=== PATIENT | female | born 1995 | race Caucasian/White ===

== ENCOUNTER 2018-03-16 20:43 | Emergency (ER) | payer BC ==
--- NOTE | 2018-03-16 21:56 | UC ---
Complaint Female HPI - HPI Summary HPI Summary: 22 y/o female presents to the urgent care c/o bright red blood in the stool she noticed 4 days ago after a bowel movement which resolved today. Pt reports lately she she has been constipated w/ hard stool every other day. She has been taking Percocet PO for a herniated disc in her back since 03/07/2018 and she thinks this has made her bowel movement harder. She also has PMHX of Migraine GRACE which was triggered this morning and then she had 3 episodes of vomiting. She took and Excedrin PO and Zofran PO around 1530PM and Migraine and vomiting has resolved tonight. LMP:03/06/2018 w/ regular menstrual cycles. Pt stays Pain is 4/10 w/ a BM at times. Pt deies fever, abdominal pain, hematoemesis, Urinary symptoms, vaginal D/C, Hx of STD's. - History Of Current Complaint Chief Complaint: UCGeneralIllness Stated Complaint: BLOOD IN STOOL,VOMITING Time Seen by Provider: 03/16/18 21:50 Hx Obtained From: Patient Onset/Duration: Gradual Onset, Lasting Days - 3 days, Resolved, Worse Since - yesterday Timing: Intermittent Severity Initially: Mild Severity Currently: Mild Pain Intensity: 4 Pain Scale Used: 0-10 Numeric Character: Sharp Aggravating Factor(s): Other - bowel movement Alleviating Factor(s): Nothing Associated Signs And Symptoms: Negative: Fever, Back Pain, Vaginal Bleeding/ Discharge, Vaginal Discharge - Risk Factors Ectopic Risk Factor: Maternal Age ^ 30 Ovarian Torsion Risk Factor: Negative - Allergies/Home Medications Allergies/Adverse Reactions: Allergies Allergy/AdvReac Type Severity Reaction Status Date / Time Sulfa (Sulfonamide Allergy Rash Verified 03/16/18 21:31 Antibiotics) Home Medications: Home Medications Ondansetron ODT TAB* [Zofran 4 MG Odt TAB*] 4 mg PO Q6H PRN 03/16/18 [History Confirmed 03/16/18] Senna TAB* [Senokot TAB*] 2 tab PO DAILY 03/16/18 [History Confirmed 03/16/18] oxyCODONE/Acetamin 5/325 MG* [Percocet 5/325 TAB*] 0.5 tab PO Q4H PRN 03/16/18 [ History Confirmed 03/16/18] PMH/Surg Hx/FS Hx/Imm Hx Previously Healthy: Yes Neurological History: Migraine Other Neurological History: lumbar herniated discs - Surgical History Surgical History: None - Family History Known Family History: Positive: Diabetes - Social History Occupation: Employed Full-time Lives: With Family Alcohol Use: Rare Substance Use Type: Prescribed Smoking Status (MU): Never Smoked Tobacco Review of Systems Constitutional: Negative Skin: Negative Eyes: Negative ENT: Negative Respiratory: Negative Cardiovascular: Negative Gastrointestinal: Other - rectal pain w/ blood in the stool which resolved today Genitourinary: Negative Motor: Negative Neurovascular: Negative Musculoskeletal: Negative Neurological: Negative Psychological: Negative Is Patient Immunocompromised?: No All Other Systems Reviewed And Are Negative: Yes Physical Exam - Summary Physical Exam Summary: Vital Signs Reviewed: Yes General:Patient is a well developed and nourished obese female who is sitting comfortable in the examining table. Patient is not in any acute respiratory distress. Eyes: Positive: Conjunctiva Clear - PERRLA, EOMI, fundi grossly normal ENT: Positive: Normal ENT inspection, Hearing grossly normal, Pharynx normal, TMs normal Neck: Positive: Supple, Nontender, No Lymphadenopathy Respiratory: Positive: Chest non-tender, Lungs clear, Normal breath sounds, No respiratory distress Cardiovascular: Positive: RRR,S1 and S2 present, No Murmur, Pulses Normal, Brisk Capillary Refill Abdomen Description: Positive: Nontender, Flat with no distention. No surface trauma, scars, incisions. normal bowel sounds present in all four quadrants. No tenderness, guarding, rigidity to palpation. No masses palpated, no pulsation in epigastric area. No organomegaly. Negative [place] signs. No periumbilical tenderness. No rebound in the lower quadrants. NT over McBurneys point. Good femoral pulses bilaterally. No hernia noted. No CVAT bilaterally Rectal:Sphincter tone normal. No rectal wall tenderness. Stool is brown and heme negative. Positive small external hemorrhoid around 6 o'clock, mild tender to palpation, no bleeding observed. Musculoskeletal: Positive: Strength Intact, ROM Intact, No Edema,FROM in all major joints, no edema, no cyanosis or clubbing. Neuro: Alert and oriented x 3. No acute neurological deficits. Speech is normal. Psychological: WNL Skin: Dry and warm Triage Information Reviewed: Yes Vital Signs: Initial Vital Signs Temp 97.9 F 03/16/18 21:25 Pulse 89 03/16/18 21:25 Resp 16 03/16/18 21:25 BP 125/85 03/16/18 21:25 Pulse Ox 99 03/16/18 21:25 Complaint Female Dx - Course Course Of Treatment: 22 y/o female presents to the urgent care c/o bright red blood in the stool she noticed 4 days ago after a bowel movement which resolved today. Pt reports lately she she has been constipated w/ hard stool every other day. She has been taking Percocet PO for a herniated disc in her back since 03/07/2018 and she thinks this has made her bowel movement harder. She also has PMHX of Migraine GRACE which was triggered this morning and then she had 3 episodes of vomiting. She took and Excedrin PO and Zofran PO around 1530PM and Migraine and vomiting has resolved tonight. LMP:03/06/2018 w/ regular menstrual cycles. Pt stays Pain is 4/10 w/ a BM at times. Pt deies fever, abdominal pain, hematoemesis, Urinary symptoms, vaginal D/C, Hx of STD's.Hx obtained. PE: Pt w/Rectal:Sphincter tone normal. No rectal wall tenderness. Stool is brown and heme negative. Positive small external hemorrhoid around 6 o 'clock, mild tender to palpation, no bleeding observed on examination. Pt Rx Anusol-HC 25 mg rectal suppository and Miralax and Tucs as directed below. PT Advised to increase fluid intake, dietary management for constipation. Advised to f/u w/ GI DR Hardwick if not improvement of symptoms in 1 week. D/C instructions explained. Pt understood and agreed w/ plan of care.Pt left the clinic hemodynamically stable, A&OX3 - Differential Dx/Diagnosis Differential Diagnosis/HQI/PQRI: Pelvic Inflammatory Disease, Urinary Tract Infection, Other - hemorrhoids, anal fistula, gastritis, ulcers, Provider Diagnoses: 1- external hemorrhoids. 2- Constipation. 3-Nausea and vomiting Discharge - Sign-Out/Discharge Documenting (check all that apply): Discharge/Admit/Transfer - D/C home - Discharge Plan Condition: Stable Disposition: HOME Prescriptions: Hydrocortisone SUPP* [Anusol HC Supp*] 25 mg .SEE ORDER BID #20 supp Polyethylene Glycol 3350* [Miralax*] 17 gm PO DAILY #1 bottle Witch Lizzette PAD* [Tucks*] 1 applic TOPICAL SEE INSTRUCTIONS #1 jar Patient Education Materials: Constipation (ED), Hemorrhoids (ED), Acute Nausea and Vomiting (ED) Referrals: [facility] [place] PHYSICIAN REFERRAL [Outside] - 3 Days Dawit Hardwick MD [Medical Doctor] - If Needed Additional Instructions: 1-Please apply medications as directed 2- Star dietary management of constipation: increase fruits, vegetables, fluid and fiber. 1-2 tablespoons qd-tid of equal parts applesauce, prune juice and oat bran. 3- Take Miralax PO as directed to alleviate constipation 4- Continue taking the Zofran PO to alleviate nausea and vomiting. Increase fluid intake and rest. - Billing Disposition and Condition Condition: STABLE Disposition: HOME
== END 2018-03-16 22:30 | disposition home or self-care (01) ==
LOC: UCCORT 20:43
DX: K64.4 Residual hemorrhoidal skin tags (principal); K59.00 Constipation, unspecified; R11.2 Nausea with vomiting, unspecified; Z87.891 Personal history of nicotine dependence; Z88.2 Allergy status to sulfonamides
CPT/HCPCS: 82270; 99202; G0463